=== PATIENT | male | born 1985 | race Caucasian/White ===

== ENCOUNTER 2019-12-12 16:48 | Emergency (ER) | payer OTHER ==
[2019-12-12 17:04] VITALS: BP 153/103; PULSE 95
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
== END 2019-12-12 19:39 | disposition home or self-care (01) ==
LOC: JD.ED 16:48
DX: Z77.21 Contact with and (suspected) exposure to potentially hazardous body fluids (principal); I48.91 Unspecified atrial fibrillation; I45.6 Pre-excitation syndrome
CPT/HCPCS: 36415; 86317; 86803; 99282; 99283; G0433

== ENCOUNTER 2022-10-01 20:53 | Emergency (ER) | payer BC, OTHER ==
[2022-10-01 21:21] VITALS: BP 135/98; PULSE 88
== END 2022-10-01 21:44 | disposition home or self-care (01) ==
LOC: JD.ED 20:53
DX: S81.852A Open bite, left lower leg, initial encounter (principal); S71.151A Open bite, right thigh, initial encounter; I48.91 Unspecified atrial fibrillation; W54.0XXA Bitten by dog, initial encounter; Y92.89 Other specified places as the place of occurrence of the external cause; Y99.0 Civilian activity done for income or pay
CPT/HCPCS: 99282; 99283